=== PATIENT | female | born 1945 | race Caucasian/White ===

== ENCOUNTER 2020-03-11 13:24 | Emergency (ER) | payer OTHER ==
[~2020-03-11] VITALS: Ht 157.5 cm; Wt 80.7 kg
--- NOTE | 2020-03-11 13:30 | NUR ---
PATIENT TO ER #[id number]
[2020-03-11] MEDS ORDERED: TRAZ-250 PO (13:37)
[2020-03-11] MEDS ORDERED: DULO60CA41 PO (13:37)
[2020-03-11] MEDS ORDERED: LISI40TA4 PO (13:37)
[2020-03-11] MEDS ORDERED: BREX2TAB PO (13:37)
[2020-03-11] MEDS ORDERED: ASPI-1077 PO (13:37)
[2020-03-11] MEDS ORDERED: CHOL200075 PO (13:37)
[2020-03-11 13:38] VITALS: BP_SYST 134
--- NOTE | 2020-03-11 13:40 | NUR ---
ER Dr. Núñez at bedside examining patient.
--- NOTE | 2020-03-11 13:45 | NUR ---
Patient presented to ER C/O cough. Patient A&Ox4, ambulatory to ER, afebrile, skin pink and warm, denies N/V/D, pain 01/06. Patient states she has chronic cough x5 months, referred to ER by Dr. Escalante office. Patient states cough present x5 months with occasional back soreness from cough.
[2020-03-11 14:00] VITALS: BP_SYST 130
--- NOTE | 2020-03-11 14:00 | NUR ---
Patient given written and verbal discharge instructions and verbalizes understanding. ER MD discussed with patient the results and treatment provided. Patient in stable condition. ID arm band removed. Rx of Prednisone & Motrin given. Patient educated on pain management and to follow up with PMD. Pain Scale 2/10. Opportunity for questions provided and answered. Medication side effect fact sheet provided.
== END 2020-03-11 14:00 | disposition home or self-care (01) ==
LOC: SED 13:24
DX: R05 Cough (principal); I10 Essential (primary) hypertension; Z88.5 Allergy status to narcotic agent; Z79.899 Other long term (current) drug therapy; Z90.49 Acquired absence of other specified parts of digestive tract; Z90.710 Acquired absence of both cervix and uterus
CPT/HCPCS: 99283

== ENCOUNTER 2021-03-13 16:28 | Emergency (ER) | payer OTHER ==
[~2021-03-13] VITALS: Ht 157.5 cm; Wt 76.2 kg
[~2021-03-13 16:28] MED LIST: ASPI-1077 PO; BREX2TAB PO; CHOL200075 PO; DULO60CA41 PO; LISI40TA13 PO; TRAZ-250 PO
[2021-03-13 16:31] VITALS: BP_SYST 140
[2021-03-13] MEDS ORDERED: KETOROLAC TROMETHAMINE 15 MG VIAL IVP ONE (17:00)
[2021-03-13] MEDS ORDERED: PROCHLORPERAZINE EDISYLATE 10 MG/2 ML VIAL IVP ONE (17:00)
[2021-03-13] MEDS ORDERED: DIPHENHYDRAMINE INJ 50 MG/ML VIAL IVP ONE (17:00)
[2021-03-13] MEDS ORDERED: NACL 0.9% 1,000 ML IV ONE (17:00)
[2021-03-13 18:12] LABS: BILIRUBIN,URINE NEGATIVE (NEGATIVE); BLOOD, URINE NEGATIVE (NEGATIVE); CLARITY/URINE CLEAR (CLEAR); COLOR,URINE YELLOW (YELLOW); GLUCOSE,URINE NEGATIVE (NEGATIVE); KETONES,URINE NEGATIVE (NEGATIVE); LEUKOCYTE ESTERASE ,URINE NEGATIVE (NEGATIVE); NITRITE, URINE NEGATIVE (NEGATIVE); PROTEIN URINE NEGATIVE (NEGATIVE); UROBILINOGEN,URINE 0.2 (0.2-1.0)
[2021-03-13 18:16] LABS: BASOPHILS % (AUTO) 0.3 % (0.0-2.0); EOSINOPHILS # (AUTO) 0.1 K/uL (0.0-0.4); HEMATOCRIT 37.7 % (36-48); HEMOGLOBIN 12.8 g/dL (12.0-16.0); LYMPHOCYTES # (AUTO) 2.2 K/uL (1.0-5.5); LYMPHOCYTES % (AUTO) 30.1 % (20.5-51.5); MEAN CORPUSCULAR HEMOGLOBIN 30 pg (27-31); MEAN CORPUSCULAR HGB CONC 34 % (32-36); MEAN CORPUSCULAR VOLUME 89 fL (79.0-98.0); MONOCYTES # (AUTO) 0.5 K/uL (0.0-1.0); MONOCYTES % (AUTO) 6.3 % (1.7-9.3); NEUTROPHILS # (AUTO) 4.6 K/uL (1.8-7.7); NEUTROPHILS % (AUTO) 62.3 % (40.0-70.0); PLATELET COUNT (AUTO) 278 K/uL (130-430); RED BLOOD CELL COUNT(AUTO) 4.23 MIL/uL (4.2-6.2); RED CELL DISTRIBUTION WIDTH 14.7 % (9.0-15.0); WHITE BLOOD COUNT (AUTO) 7.3 K/uL (4.8-10.8)
[2021-03-13 18:27] LABS: ANION GAP 9 (5-15); CALCIUM 8.1 mg/dL (8.4-11.0); CHLORIDE 109 mmol/L (98-107); GLUCOSE 97 mg/dL (70-99); POTASSIUM 3.5 mmol/L (3.5-5.1); SODIUM SERUM 141 mmol/L (136-145); UREA NITROGEN, BLOOD 19 mg/dL (8-21)
[2021-03-13 18:29] LABS: BARBITURATE, URINE NEGATIVE (NEG <=200); BENZODIAZEPINE, URINE NEGATIVE (NEG <=150); CANNABINOID, URINE NEGATIVE (NEG <=50); COCAINE, URINE NEGATIVE (NEG <=150); METHAMPHETAMINES SCREEN,URINE NEGATIVE (NEG <=500); OPIATE, URINE NEGATIVE (NEG <=100); PHENCYCLIDINE SCREEN,URINE NEGATIVE (NEG <=25); UR TRICYCLIC ANTIDEPRESSANTS NEGATIVE (NEG <=300); URINE AMPHETAMINE NEGATIVE (NEG <=500); URINE METHADONE NEGATIVE (NEG <=200); URINE OXYCODONE SCREEN NEGATIVE (NEG <=100); URINE PROPOXYPHENE SCREEN NEGATIVE (NEG <=300)
[2021-03-13 18:32] LABS: ALANINE AMINOTRANSFERASE 30 U/L (12-78); ALBUMIN 3.4 g/dL (3.4-4.8); ASPARTATE AMINOTRANSFERASE 18 U/L (10-37); TOTAL BILIRUBIN 0.1 mg/dL (0.0-1.0)
[2021-03-13 18:34] LABS: PROTHROMBIN TIME 10.3 SECS (9.5-12.5)
[2021-03-13] MEDS ORDERED: PROC5TAB12 PO (19:29)
[2021-03-13 19:37] VITALS: BP_SYST 128
== END 2021-03-13 19:44 | disposition home or self-care (01) ==
LOC: SED 16:28
DX: R51.9 Headache, unspecified (principal); I10 Essential (primary) hypertension; Z79.899 Other long term (current) drug therapy; Z88.6 Allergy status to analgesic agent
CPT/HCPCS: 36415; 70450; 71045; 72125; 76376; 80053; 80307; 81003; 84484; 85025; 85610; 85730; 93005; 96361; 96374; 96375; 99285; J0780; J1200; J1885; J7030